=== PATIENT | male | born 1970 | race Hispanic/Latino ===

== ENCOUNTER 2023-10-22 12:19 | Inpatient (IN) | payer OTHER ==
[~2023-10-22] VITALS: Ht 193 cm; Wt 114.4 kg
[2023-10-22 12:57] LABS: BASOPHILS # (AUTO) 0.04 K/uL (0.00-0.20); BASOPHILS % (AUTO) 0.3 % (0.0-5.0); EOSINOPHILS # (AUTO) 0.02 K/uL (0.00-0.70); EOSINOPHILS % (AUTO) 0.2 % (0.0-8.0); IMMATURE GRANULOCYTE ABSOLUTE 0.03 K/uL (0-1); LYMPHOCYTES # (AUTO) 1.2 K/uL (1.0-4.8); LYMPHOCYTES % (AUTO) 10.3 % (21.0-51.0); MEAN CORPUSCULAR HEMOGLOBIN 28.7 pg (27.0-33.0); MEAN CORPUSCULAR HGB CONC 33.1 g/dL (32.0-36.0); MEAN CORPUSCULAR VOLUME 86.5 fL (79-99); MONOCYTES # (AUTO) 0.6 K/uL (0.1-1.0); MONOCYTES % (AUTO) 4.9 % (3.0-13.0); PLATELET COUNT (AUTO) 254 K/uL (130-400); RED CELL DISTRIBUTION WIDTH 13.2 % (11.0-15.5); WHITE BLOOD COUNT (AUTO) 11.9 K/uL (4.8-10.8)
[2023-10-22 13:04] LABS: CREATININE 1.2 mg/dL (0.5-1.5); POTASSIUM 3.6 mmol/L (3.5-5.1)
[2023-10-22 13:08] LABS: ALBUMIN 3.7 g/dL (3.5-5.0); BILIRUBIN,TOTAL 0.5 mg/dL (0.2-1.0); TOTAL PROTEIN, SERUM 7.4 g/dL (6.0-8.3)
[2023-10-22] MEDS ORDERED: FAMOTIDINE 20MG VIAL IV ONE (13:30)
[2023-10-22] MEDS ORDERED: LACTATED RINGERS 1000ML 1,000 ML IV ONE (13:30)
[2023-10-22] MEDS ORDERED: METOCLOPRAMIDE 10 MG/2 ML VIAL IVP ONE (13:30)
[2023-10-22] MEDS ORDERED: MORPHINE 4 MG SYG IVP ONE (13:30)
[2023-10-22] MEDS ORDERED: CEFTRIAXONE 2GM VIAL IVPB ONE (15:00)
[2023-10-22 15:21] LABS: CHOLESTEROL 206 mg/dL (<200); HDL CHOLESTEROL 65 mg/dL (29-71); LDL DIRECT 119 mg/dL (0-99); TRIGLYCERIDES 131 mg/dL (30-200)
[2023-10-22] MEDS ORDERED: CEFTRIAXONE 1G VIAL 1 GM in 0.9%NACL 50ML 50 ML IV SCH (18:30)
[2023-10-22] MEDS: 0.9%NACL 1000ML 1,000 ML IV SCH (18:40)
[2023-10-22] MEDS: ONDANSETRON 4MG INJ IV PRN (18:41)
[2023-10-22] MEDS: MORPHINE 2 MG SYG IV PRN (18:42)
[2023-10-22 18:45] LABS: HEMOGLOBIN A1C 5.7 % (4.0-6.0)
[2023-10-22] MEDS ORDERED: CEFTRIAXONE 1G VIAL IVPB SCH (19:00)
[2023-10-22] MEDS: FAMOTIDINE 20MG VIAL IV SCH (20:14)
[2023-10-22] MEDS: ATORVASTATIN 40 MG TABLET PO SCH (20:14)
[2023-10-22 22:00] VITALS: BP 157/92; PULSE 111; RESP 20
[2023-10-22 22:40] VITALS: O2SAT 97; O2SAT 99
[2023-10-23] VITALS (8 sets, daily range): BP systolic 129–168; BP diastolic 83–92; PULSE 89–115; RESP 17–19; O2SAT 97
[2023-10-23] MEDS: 0.9%NACL 1000ML 1,000 ML IV SCH ×4 (00:12→20:35)
[2023-10-23 06:05] LABS: BASOPHILS # (AUTO) 0.02 K/uL (0.00-0.20); BASOPHILS % (AUTO) 0.1 % (0.0-5.0); HEMATOCRIT 45.6 % (42-54); IMMATURE GRANULOCYTE ABSOLUTE 0.06 K/uL (0-1); LYMPHOCYTES # (AUTO) 0.6 K/uL (1.0-4.8); LYMPHOCYTES % (AUTO) 3.7 % (21.0-51.0); MEAN CORPUSCULAR HEMOGLOBIN 28.7 pg (27.0-33.0); MEAN CORPUSCULAR HGB CONC 32.9 g/dL (32.0-36.0); MEAN CORPUSCULAR VOLUME 87.2 fL (79-99); MONOCYTES # (AUTO) 0.9 K/uL (0.1-1.0); MONOCYTES % (AUTO) 5.5 % (3.0-13.0); NEUTROPHILS # (AUTO) 15.4 K/uL (1.8-7.7); NEUTROPHILS % (AUTO) 90.3 % (40.0-77.0); PLATELET COUNT (AUTO) 212 K/uL (130-400); RED BLOOD CELL COUNT(AUTO) 5.23 MIL/uL (4.50-6.20); RED CELL DISTRIBUTION WIDTH 13.9 % (11.0-15.5)
[2023-10-23 06:42] LABS: ALBUMIN 3.2 g/dL (3.5-5.0); BILIRUBIN,TOTAL 0.5 mg/dL (0.2-1.0); CREATININE 1.1 mg/dL (0.5-1.5); POTASSIUM 3.8 mmol/L (3.5-5.1); TOTAL PROTEIN, SERUM 6.7 g/dL (6.0-8.3)
[2023-10-23 07:16] LABS: ERYTHROCYTE SEDIMENTATION RATE 2 MM/HR (0-20)
[2023-10-23] MEDS: FAMOTIDINE 20MG VIAL IV SCH ×2 (09:28→20:23)
[2023-10-23] MEDS: ENOXAPARIN SODIUM 40 MG/0.4 ML SYRINGE SQ SCH (09:28)
[2023-10-23] MEDS: MORPHINE 2 MG SYG IV PRN ×3 (09:33→21:37)
[2023-10-23] MEDS: CEFTRIAXONE 1G VIAL IVPB SCH (13:58)
[2023-10-23] MEDS: ZOSYN 3.375GM +NS 50ML IV SCH ×2 (15:53→22:12)
[2023-10-23] MEDS: HYDRALAZINE 20MG/ML VIAL IV PRN (16:21)
[2023-10-23] MEDS: ATORVASTATIN 40 MG TABLET PO SCH (20:23)
[2023-10-23] MEDS: ACETAMINOPHEN 325 MG TAB PO PRN (20:24)
[2023-10-23] MEDS: ONDANSETRON 4MG INJ IV PRN (21:37)
[2023-10-24] VITALS (7 sets, daily range): BP systolic 120–160; BP diastolic 74–89; PULSE 64–100; RESP 16–20; O2SAT 94–97
[2023-10-24] MEDS: ACETAMINOPHEN 325 MG TAB PO PRN ×2 (00:53→23:55)
[2023-10-24] MEDS: IBUPROFEN 800 MG TAB PO PRN ×2 (02:01→08:57)
[2023-10-24] MEDS: 0.9%NACL 1000ML 1,000 ML IV SCH ×4 (02:01→23:59)
[2023-10-24 02:09] LABS: BASOPHILS # (AUTO) 0.05 K/uL (0.00-0.20); BASOPHILS % (AUTO) 0.3 % (0.0-5.0); HEMATOCRIT 45.5 % (42-54); IMMATURE GRANULOCYTE ABSOLUTE 0.11 K/uL (0-1); LYMPHOCYTES # (AUTO) 0.6 K/uL (1.0-4.8); LYMPHOCYTES % (AUTO) 3.3 % (21.0-51.0); MEAN CORPUSCULAR HEMOGLOBIN 29.6 pg (27.0-33.0); MEAN CORPUSCULAR VOLUME 89.7 fL (79-99); MONOCYTES # (AUTO) 0.9 K/uL (0.1-1.0); MONOCYTES % (AUTO) 4.6 % (3.0-13.0); NEUTROPHILS # (AUTO) 17.8 K/uL (1.8-7.7); NEUTROPHILS % (AUTO) 91.2 % (40.0-77.0); PLATELET COUNT (AUTO) 170 K/uL (130-400); RED BLOOD CELL COUNT(AUTO) 5.07 MIL/uL (4.50-6.20); WHITE BLOOD COUNT (AUTO) 19.5 K/uL (4.8-10.8)
[2023-10-24 02:28] LABS: ALBUMIN 2.9 g/dL (3.5-5.0); CREATININE 1.1 mg/dL (0.5-1.5); POTASSIUM 3.9 mmol/L (3.5-5.1); TOTAL PROTEIN, SERUM 6.4 g/dL (6.0-8.3)
[2023-10-24 02:32] LABS: APPEARANCE,URINE CLEAR (CLEAR); BILIRUBIN,URINE NEGATIVE (NEGATIVE); COLOR,URINE YELLOW (YELLOW); GLUCOSE, URINE (UA) 50 mg/dL (NEGATIVE); KETONES,URINE 5 mg/dL (NEGATIVE); LEUKOCYTE ESTERASE ,URINE NEGATIVE Leu/uL (NEGATIVE); NITRATE,URINE NEGATIVE (NEGATIVE); OCCULT BLOOD,URINE SMALL (NEGATIVE); PROTEIN,URINE 70 mg/dL (NEGATIVE); UROBILINOGEN,URINE 0.2 mg/dL (0.2-1.0)
[2023-10-24 02:41] LABS: ADD UA MICROSCOPIC YES
[2023-10-24 02:48] LABS: MUCUS,URINE RARE LPF (None Seen); SQUAMOUS EPITHELIAL CELL,UR RARE /HPF (0-2)
[2023-10-24] MEDS: ZOSYN 3.375GM +NS 50ML IV SCH ×3 (04:59→21:39)
[2023-10-24] MEDS: FAMOTIDINE 20MG VIAL IV SCH (08:49)
[2023-10-24] MEDS: ENOXAPARIN SODIUM 40 MG/0.4 ML SYRINGE SQ SCH (08:51)
[2023-10-24] MEDS ORDERED: SUCRALFATE 1 GM TABLET PO SCH (12:30)
[2023-10-24] MEDS: CEFTRIAXONE 1G VIAL IVPB SCH (14:40)
[2023-10-24] MEDS: MORPHINE 2 MG SYG IV PRN (16:32)
[2023-10-24] MEDS: HYDROMORPHONE 1 MG INJ IV PRN (20:14)
[2023-10-24] MEDS: ATORVASTATIN 40 MG TABLET PO SCH (20:15)
[2023-10-25] VITALS (7 sets, daily range): BP systolic 135–157; BP diastolic 78–90; PULSE 82–117; RESP 18–20; O2SAT 95–96
[2023-10-25] MEDS: HYDROMORPHONE 1 MG INJ IV PRN ×3 (02:42→16:10)
[2023-10-25 06:07] LABS: BASOPHILS # (AUTO) 0.03 K/uL (0.00-0.20); BASOPHILS % (AUTO) 0.2 % (0.0-5.0); EOSINOPHILS # (AUTO) 0.01 K/uL (0.00-0.70); EOSINOPHILS % (AUTO) 0.1 % (0.0-8.0); HEMATOCRIT 38.5 % (42-54); LYMPHOCYTES # (AUTO) 0.8 K/uL (1.0-4.8); LYMPHOCYTES % (AUTO) 5.5 % (21.0-51.0); MEAN CORPUSCULAR HEMOGLOBIN 28.7 pg (27.0-33.0); MEAN CORPUSCULAR HGB CONC 32.7 g/dL (32.0-36.0); MEAN CORPUSCULAR VOLUME 87.7 fL (79-99); MONOCYTES # (AUTO) 0.9 K/uL (0.1-1.0); MONOCYTES % (AUTO) 6.6 % (3.0-13.0); NEUTROPHILS # (AUTO) 12.3 K/uL (1.8-7.7); NEUTROPHILS % (AUTO) 86.9 % (40.0-77.0); PLATELET COUNT (AUTO) 135 K/uL (130-400); RED BLOOD CELL COUNT(AUTO) 4.39 MIL/uL (4.50-6.20); RED CELL DISTRIBUTION WIDTH 13.6 % (11.0-15.5); WHITE BLOOD COUNT (AUTO) 14.2 K/uL (4.8-10.8)
[2023-10-25] MEDS: ZOSYN 3.375GM +NS 50ML IV SCH ×3 (06:08→21:09)
[2023-10-25] MEDS: 0.9%NACL 1000ML 1,000 ML IV SCH ×3 (06:15→21:09)
[2023-10-25 06:38] LABS: ALBUMIN 2.5 g/dL (3.5-5.0); CREATININE 0.9 mg/dL (0.5-1.5); POTASSIUM 3.4 mmol/L (3.5-5.1)
[2023-10-25] MEDS: ENOXAPARIN SODIUM 40 MG/0.4 ML SYRINGE SQ SCH (08:17)
[2023-10-25] MEDS: PANTOPRAZOLE 40 MG/VIAL IVP SCH (08:17)
[2023-10-25] MEDS: ACETAMINOPHEN 325 MG TAB PO PRN (11:22)
[2023-10-25] MEDS: IBUPROFEN 800 MG TAB PO PRN (16:22)
[2023-10-25] MEDS: ATORVASTATIN 40 MG TABLET PO SCH (21:09)
[2023-10-26] VITALS (7 sets, daily range): BP systolic 139–179; BP diastolic 79–91; PULSE 70–96; RESP 16–20; O2SAT 93
[2023-10-26] MEDS: 0.9%NACL 1000ML 1,000 ML IV SCH ×2 (02:30→22:30)
[2023-10-26] MEDS: ACETAMINOPHEN 325 MG TAB PO PRN ×2 (04:11→23:06)
[2023-10-26 05:24] LABS: BASOPHILS # (AUTO) 0.04 K/uL (0.00-0.20); BASOPHILS % (AUTO) 0.3 % (0.0-5.0); EOSINOPHILS # (AUTO) 0.08 K/uL (0.00-0.70); EOSINOPHILS % (AUTO) 0.7 % (0.0-8.0); HEMATOCRIT 37.7 % (42-54); IMMATURE GRANULOCYTE ABSOLUTE 0.06 K/uL (0-1); LYMPHOCYTES # (AUTO) 0.6 K/uL (1.0-4.8); LYMPHOCYTES % (AUTO) 4.8 % (21.0-51.0); MEAN CORPUSCULAR HEMOGLOBIN 29.5 pg (27.0-33.0); MEAN CORPUSCULAR HGB CONC 33.4 g/dL (32.0-36.0); MEAN CORPUSCULAR VOLUME 88.3 fL (79-99); MONOCYTES # (AUTO) 1.1 K/uL (0.1-1.0); MONOCYTES % (AUTO) 9.1 % (3.0-13.0); NEUTROPHILS # (AUTO) 10.2 K/uL (1.8-7.7); NEUTROPHILS % (AUTO) 84.6 % (40.0-77.0); PLATELET COUNT (AUTO) 161 K/uL (130-400); RED BLOOD CELL COUNT(AUTO) 4.27 MIL/uL (4.50-6.20); RED CELL DISTRIBUTION WIDTH 13.8 % (11.0-15.5)
[2023-10-26] MEDS: ZOSYN 3.375GM +NS 50ML IV SCH ×3 (05:30→21:12)
[2023-10-26] MEDS: HYDROMORPHONE 1 MG INJ IV PRN ×4 (05:30→23:16)
[2023-10-26 05:52] LABS: ALBUMIN 2.4 g/dL (3.5-5.0); BILIRUBIN,TOTAL 1.1 mg/dL (0.2-1.0); POTASSIUM 3.1 mmol/L (3.5-5.1); TOTAL PROTEIN, SERUM 6.3 g/dL (6.0-8.3)
[2023-10-26] MEDS: PANTOPRAZOLE 40 MG/VIAL IVP SCH (09:01)
[2023-10-26] MEDS: ENOXAPARIN SODIUM 40 MG/0.4 ML SYRINGE SQ SCH (09:01)
[2023-10-26] MEDS: MORPHINE 2 MG SYG IV PRN (13:37)
[2023-10-26] MEDS: ATORVASTATIN 40 MG TABLET PO SCH (21:11)
[2023-10-26] MEDS: HYDRALAZINE 20MG/ML VIAL IV PRN (23:05)
[2023-10-27] VITALS (8 sets, daily range): BP systolic 124–165; BP diastolic 71–95; PULSE 70–88; RESP 18–20; O2SAT 96–97
[2023-10-27] MEDS: 0.9%NACL 1000ML 1,000 ML IV SCH ×3 (05:10→18:30)
[2023-10-27] MEDS: ZOSYN 3.375GM +NS 50ML IV SCH (05:44)
[2023-10-27] MEDS: HYDROMORPHONE 1 MG INJ IV PRN (07:24)
[2023-10-27] MEDS: PANTOPRAZOLE 40 MG/VIAL IVP SCH (09:05)
[2023-10-27] MEDS: ENOXAPARIN SODIUM 40 MG/0.4 ML SYRINGE SQ SCH (09:05)
[2023-10-27] MEDS: IBUPROFEN 800 MG TAB PO PRN ×2 (11:46→23:07)
[2023-10-27] MEDS ORDERED: VANCOMYCIN PROTOCOL PER PHARMACY IV SCH (12:30)
[2023-10-27] MEDS ORDERED: COMPOUND IV MISC 1 EACH IVSOLN MISC PRN (13:00)
[2023-10-27] MEDS: MEROPENEM 1 GM in 0.9%NACL 100ML 100 ML IVPB SCH ×2 (13:55→20:39)
[2023-10-27] MEDS: VANCOMYCIN 1G/250ML KIT 250 ML IV SCH ×2 (13:55→20:42)
[2023-10-27] MEDS: ACETAMINOPHEN 325 MG TAB PO PRN (13:57)
[2023-10-27] MEDS: ATORVASTATIN 40 MG TABLET PO SCH (20:42)
[2023-10-27] MEDS: DOXYCYCLINE HYCLATE 100 MG TABLET PO SCH (20:42)
[2023-10-28] VITALS (7 sets, daily range): BP systolic 139–174; BP diastolic 69–98; PULSE 76–88; RESP 17–20; O2SAT 96–98
[2023-10-28] MEDS: 0.9%NACL 1000ML 1,000 ML IV SCH ×4 (01:10→21:09)
[2023-10-28] MEDS: MEROPENEM 1 GM in 0.9%NACL 100ML 100 ML IVPB SCH ×3 (03:42→19:56)
[2023-10-28] MEDS: VANCOMYCIN 1G/250ML KIT 250 ML IV SCH ×3 (05:10→21:09)
[2023-10-28 05:44] LABS: BASOPHILS # (AUTO) 0.03 K/uL (0.00-0.20); BASOPHILS % (AUTO) 0.3 % (0.0-5.0); EOSINOPHILS # (AUTO) 0.09 K/uL (0.00-0.70); EOSINOPHILS % (AUTO) 0.9 % (0.0-8.0); HEMATOCRIT 32.9 % (42-54); IMMATURE GRANULOCYTE ABSOLUTE 0.08 K/uL (0-1); LYMPHOCYTES # (AUTO) 0.7 K/uL (1.0-4.8); MEAN CORPUSCULAR HGB CONC 33.4 g/dL (32.0-36.0); MEAN CORPUSCULAR VOLUME 86.8 fL (79-99); MONOCYTES % (AUTO) 9.9 % (3.0-13.0); NEUTROPHILS # (AUTO) 8.3 K/uL (1.8-7.7); NEUTROPHILS % (AUTO) 81.1 % (40.0-77.0); PLATELET COUNT (AUTO) 207 K/uL (130-400); RED BLOOD CELL COUNT(AUTO) 3.79 MIL/uL (4.50-6.20); RED CELL DISTRIBUTION WIDTH 13.9 % (11.0-15.5); WHITE BLOOD COUNT (AUTO) 10.3 K/uL (4.8-10.8)
[2023-10-28 05:57] LABS: ALBUMIN 2.3 g/dL (3.5-5.0); BILIRUBIN,TOTAL 0.7 mg/dL (0.2-1.0); CREATININE 0.8 mg/dL (0.5-1.5); POTASSIUM 3.1 mmol/L (3.5-5.1); TOTAL PROTEIN, SERUM 6.2 g/dL (6.0-8.3)
[2023-10-28] MEDS: DOXYCYCLINE HYCLATE 100 MG TABLET PO SCH ×2 (09:45→19:56)
[2023-10-28] MEDS: ENOXAPARIN SODIUM 40 MG/0.4 ML SYRINGE SQ SCH (09:46)
[2023-10-28] MEDS: PANTOPRAZOLE 40 MG/VIAL IVP SCH (09:46)
[2023-10-28] MEDS: ACETAMINOPHEN 325 MG TAB PO PRN (16:59)
[2023-10-28] MEDS: ATORVASTATIN 40 MG TABLET PO SCH (19:56)
[2023-10-29] VITALS (8 sets, daily range): BP systolic 96–165; BP diastolic 40–91; PULSE 64–92; RESP 16–20; O2SAT 98
[2023-10-29] MEDS: ACETAMINOPHEN 325 MG TAB PO PRN ×3 (00:19→20:25)
[2023-10-29] MEDS: MEROPENEM 1 GM in 0.9%NACL 100ML 100 ML IVPB SCH ×3 (03:23→20:24)
[2023-10-29] MEDS: 0.9%NACL 1000ML 1,000 ML IV SCH ×3 (03:23→17:10)
[2023-10-29] MEDS: VANCOMYCIN 1G/250ML KIT 250 ML IV SCH ×3 (04:12→20:26)
[2023-10-29] MEDS: HYDRALAZINE 20MG/ML VIAL IV PRN (07:50)
[2023-10-29] MEDS: ENOXAPARIN SODIUM 40 MG/0.4 ML SYRINGE SQ SCH (08:00)
[2023-10-29] MEDS: PANTOPRAZOLE 40 MG/VIAL IVP SCH (08:00)
[2023-10-29] MEDS: DOXYCYCLINE HYCLATE 100 MG TABLET PO SCH ×2 (08:00→20:24)
[2023-10-29] MEDS ORDERED: KCL 20 MEQ ERTAB PO PRN (12:00)
[2023-10-29] MEDS ORDERED: POTASSIUM CHLORIDE 20MEQ/100ML 100 ML IV PRN (12:00)
[2023-10-29] MEDS: POTASSIUM CHLORIDE 10% ELIXIR 20 MEQ/15 ML UDCUP PO PRN ×4 (12:56→20:32)
[2023-10-29] MEDS: ATORVASTATIN 40 MG TABLET PO SCH (20:24)
[2023-10-30] VITALS (8 sets, daily range): BP systolic 124–150; BP diastolic 75–88; PULSE 66–81; RESP 17–18; TEMP 99.5; O2SAT 98
[2023-10-30] MEDS: 0.9%NACL 1000ML 1,000 ML IV SCH ×4 (00:09→19:50)
[2023-10-30] MEDS: MEROPENEM 1 GM in 0.9%NACL 100ML 100 ML IVPB SCH ×3 (03:56→20:41)
[2023-10-30] MEDS: IBUPROFEN 800 MG TAB PO PRN (04:01)
[2023-10-30] MEDS: VANCOMYCIN 1G/250ML KIT 250 ML IV SCH ×3 (05:36→20:41)
[2023-10-30 05:47] LABS: ALBUMIN 2.3 g/dL (3.5-5.0); BILIRUBIN,TOTAL 0.7 mg/dL (0.2-1.0); CREATININE 0.9 mg/dL (0.5-1.5); POTASSIUM 3.9 mmol/L (3.5-5.1); TOTAL PROTEIN, SERUM 6.7 g/dL (6.0-8.3)
[2023-10-30] MEDS: DOXYCYCLINE HYCLATE 100 MG TABLET PO SCH ×2 (09:48→20:41)
[2023-10-30] MEDS: PANTOPRAZOLE 40 MG/VIAL IVP SCH (09:48)
[2023-10-30] MEDS: ENOXAPARIN SODIUM 40 MG/0.4 ML SYRINGE SQ SCH (09:48)
[2023-10-30 17:40] LABS: INR 1.04 (0.85-1.15)
[2023-10-30] MEDS: ATORVASTATIN 40 MG TABLET PO SCH (20:41)
[2023-10-31] VITALS (29 sets, daily range): BP systolic 112–148; BP diastolic 59–88; PULSE 64–104; RESP 14–20; O2SAT 96–98
[2023-10-31] MEDS: 0.9%NACL 1000ML 1,000 ML IV SCH ×3 (04:20→20:44)
[2023-10-31] MEDS: MEROPENEM 1 GM in 0.9%NACL 100ML 100 ML IVPB SCH ×3 (04:20→20:38)
[2023-10-31] MEDS: VANCOMYCIN 1G/250ML KIT 250 ML IV SCH ×3 (05:05→20:39)
[2023-10-31 05:13] LABS: HEMATOCRIT 38.6 % (42-54); MEAN CORPUSCULAR HGB CONC 32.6 g/dL (32.0-36.0); MEAN CORPUSCULAR VOLUME 88.9 fL (79-99); RED BLOOD CELL COUNT(AUTO) 4.34 MIL/uL (4.50-6.20); RED CELL DISTRIBUTION WIDTH 13.7 % (11.0-15.5); WHITE BLOOD COUNT (AUTO) 9.6 K/uL (4.8-10.8)
[2023-10-31 05:20] LABS: CREATININE 0.8 mg/dL (0.5-1.5); MAGNESIUM 2.1 mg/dL (1.80-2.40); POTASSIUM 3.8 mmol/L (3.5-5.1)
[2023-10-31] MEDS ORDERED: LIDOCAINE PF 100MG/5ML (2%) SYRINGE 5ML ONE (08:19)
[2023-10-31] MEDS ORDERED: PROPOFOL 10 MG/ML 20ML VIAL IV ONE (08:19)
[2023-10-31] MEDS ORDERED: ROCURONIUM BROMIDE 10MG/1ML 5ML VL ONE ×2 (08:19→09:18)
[2023-10-31] MEDS ORDERED: MIDAZOLAM HCL 1 MG/ML 2ML VIAL ONE (08:19)
[2023-10-31] MEDS ORDERED: FENTANYL CITRATE PF 50 MCG/1 ML 5ML AMP IV ONE (08:20)
[2023-10-31] MEDS ORDERED: LACTATED RINGERS 1000ML 1,000 ML IV ONE (08:21)
[2023-10-31] MEDS ORDERED: ROPIVACAINE 0.5% 5MG/ML 30ML ONE (08:22)
[2023-10-31] MEDS: PANTOPRAZOLE 40 MG/VIAL IVP SCH (09:00)
[2023-10-31] MEDS: ENOXAPARIN SODIUM 40 MG/0.4 ML SYRINGE SQ SCH (09:00)
[2023-10-31] MEDS: DOXYCYCLINE HYCLATE 100 MG TABLET PO SCH ×2 (09:00→20:39)
[2023-10-31] MEDS ORDERED: INDOCYANINE GREEN 25 MG VIAL IJ ONE ×2 (09:25→09:36)
[2023-10-31] MEDS ORDERED: ONDANSETRON 4MG INJ ONE (09:26)
[2023-10-31] MEDS ORDERED: DEXAMETHASONE SOD PHOSPHATE 4 MG/ML 1ML VIAL ONE (09:26)
[2023-10-31] MEDS ORDERED: GLYCOPYRROLATE 0.2 MG/ML 5 ML VIAL ONE (09:53)
[2023-10-31] MEDS ORDERED: NEOSTIGMINE METHYLSULFATE 1MG/ML IV ONE (09:53)
[2023-10-31] MEDS ORDERED: MEPERIDINE-PF 25 MG/ML SYG ONE (10:25)
[2023-10-31] MEDS: ATORVASTATIN 40 MG TABLET PO SCH (20:40)
[2023-11-01 00:35] VITALS: BP 127/73; PULSE 81; RESP 18
[2023-11-01 03:35] VITALS: BP 124/71; PULSE 75; RESP 18
[2023-11-01] MEDS: VANCOMYCIN 1G/250ML KIT 250 ML IV SCH (04:08)
[2023-11-01] MEDS: MEROPENEM 1 GM in 0.9%NACL 100ML 100 ML IVPB SCH (04:08)
[2023-11-01] MEDS: 0.9%NACL 1000ML 1,000 ML IV SCH ×2 (04:11→11:50)
[2023-11-01 05:43] LABS: BASOPHILS # (AUTO) 0.01 K/uL (0.00-0.20); BASOPHILS % (AUTO) 0.1 % (0.0-5.0); HEMATOCRIT 36.5 % (42-54); LYMPHOCYTES # (AUTO) 0.9 K/uL (1.0-4.8); LYMPHOCYTES % (AUTO) 6.5 % (21.0-51.0); MEAN CORPUSCULAR HEMOGLOBIN 28.9 pg (27.0-33.0); MEAN CORPUSCULAR HGB CONC 33.2 g/dL (32.0-36.0); MEAN CORPUSCULAR VOLUME 87.3 fL (79-99); MONOCYTES # (AUTO) 0.9 K/uL (0.1-1.0); MONOCYTES % (AUTO) 6.4 % (3.0-13.0); NEUTROPHILS # (AUTO) 12.3 K/uL (1.8-7.7); NEUTROPHILS % (AUTO) 86.3 % (40.0-77.0); PLATELET COUNT (AUTO) 336 K/uL (130-400); RED BLOOD CELL COUNT(AUTO) 4.18 MIL/uL (4.50-6.20); RED CELL DISTRIBUTION WIDTH 13.6 % (11.0-15.5); WHITE BLOOD COUNT (AUTO) 14.2 K/uL (4.8-10.8)
[2023-11-01 05:59] LABS: ALBUMIN 2.3 g/dL (3.5-5.0); BILIRUBIN,TOTAL 0.4 mg/dL (0.2-1.0); CREATININE 0.9 mg/dL (0.5-1.5); POTASSIUM 3.9 mmol/L (3.5-5.1); TOTAL PROTEIN, SERUM 6.8 g/dL (6.0-8.3)
[2023-11-01 08:00] VITALS: O2SAT 97
[2023-11-01 08:51] VITALS: BP 138/81; PULSE 75; RESP 18
[2023-11-01] MEDS: DOXYCYCLINE HYCLATE 100 MG TABLET PO SCH (09:57)
[2023-11-01] MEDS: PANTOPRAZOLE 40 MG/VIAL IVP SCH (09:57)
[2023-11-01] MEDS: ENOXAPARIN SODIUM 40 MG/0.4 ML SYRINGE SQ SCH (09:58)
[2023-11-01] MEDS ORDERED: AMOX875T2 PO (11:10)
[2023-11-01] MEDS ORDERED: ATOR40TA69 PO (11:10)
[2023-11-01 12:00] VITALS: BP 131/74; PULSE 80; RESP 18
== END 2023-11-01 17:00 | disposition home or self-care (01) | DRG 853 ==
LOC: EDH 12:19 → EDHIP 12:20 → 3BH 21:55
PROVIDERS: ADMIT Hospitalist; ATTEND Hospitalist
PROC: 0FT44ZZ Resection of Gallbladder, Percutaneous Endoscopic Approach (ICD-10-PCS; principal; 2023-10-31 11:20)
PROC: 8E0W4CZ Robotic Assisted Procedure of Trunk Region, Percutaneous Endoscopic Approach (ICD-10-PCS; 2023-10-31 11:20)
DX: A41.9 Sepsis, unspecified organism (principal); J18.9 Pneumonia, unspecified organism; K85.10 Biliary acute pancreatitis without necrosis or infection; E86.1 Hypovolemia; E11.9 Type 2 diabetes mellitus without complications; I44.0 Atrioventricular block, first degree; K21.00 Gastro-esophageal reflux disease with esophagitis, without bleeding; K80.20 Calculus of gallbladder without cholecystitis without obstruction; E78.5 Hyperlipidemia, unspecified; K82.8 Other specified diseases of gallbladder; Z79.899 Other long term (current) drug therapy
CPT/HCPCS: 36415; 71045; 71250; 74018; 74176; 76705; 80048; 80053; 80061; 80202; 81001; 83036; 83605; 83690; 83735; 84145; 84484; 85025; 85027; 85610; 85651; 86140; 87040; 87088; 93005; 93306; 93356; C9113; G0378; J0360; J0696; J1100; J1170; J1650; J2001; J2175; J2185; J2250; J2270; J2405; J2543; J2704; J2710; J2765; J2795; J3010; J3370; J3490; J7030; J7120; A4216; A4222; A4223; A4649; C1769